=== PATIENT | female | born 1975 | race Caucasian/White ===

== ENCOUNTER 2021-12-06 17:19 | Emergency (ER) | payer BC, SELFPAY ==
[2021-12-06 17:27] VITALS: BP 156/81; PULSE 105; RESP 18; TEMP 36.8; O2SAT 100; BMI 31.7
--- NOTE | 2021-12-06 18:00 | ED_ITS ---
HPI - General Adult General Chief complaint: Headache/Migraine Stated complaint: Spinal Headache high Blood Pressure Time Seen by Provider: 12/06/21 17:40 Source: patient Mode of arrival: ambulatory Limitations: no limitations History of Present Illness HPI narrative: 46-year-old female coming in today with a headache that started yesterday. Patient had 2 epidural injections yesterday for sciatic cough she states 1 at L5 and another 1 lower. She states that she has had headache ever since. Headache is located across the forehead from zoroastrian to zoroastrian. Nothing seems to make it better or worse. When she lays down the headache remains. Sometimes it does radiate to the back of the head and down her neck as well does not radiate down her back. She denies any low back pain that is new. Again this pain is not positional. She feels nauseated. Has not vomited. Denies any fevers or chills. No confusion, blurry vision or changes in her hearing. No focal neurologic deficits. She states that she does have history of migraines, but has not had a migraine for quite some time. Related Data Home Medications Medication Instructions Recorded Confirmed dextroamphetamine-amphetamine ER PO 12/06/21 15 mg 24hr capsule,extend release estradiol 1 mg tablet mg 12/06/21 gabapentin 600 mg tablet mg 12/06/21 montelukast 10 mg tablet mg 12/06/21 Allergies Allergy/AdvReac Type Severity Reaction Status Date / Time No Known Drug Allergies Allergy Verified 12/06/21 17:35 Review of Systems Status of ROS: Reports: 10 or more systems reviewed and unremarkable except as noted in History and below Exam Narrative: Exam Narrative: Well-nourished well-developed patient in no acute distress. Alert and oriented. Answers questions appropriately. Mood and affect are appropriate. Thoughts are goal oriented and rational. No tangential or magical thinking noted. Patient speaks in full sentences without needing to catch their breath. HEENT: Normocephalic atraumatic. Pupils are equally round reactive to light. Extraocular muscles are intact. Conjunctivae are moist without any icterus noted. Moist mucous membranes. Posterior pharynx is normal. Neck is soft without any lymphadenopathy or thyromegaly. No masses are appreciated. She has no tenderness to palpation at the neck. She has full range of motion with flexion, extension, side bending or rotation of the cervical spine. He Skin: Well perfused without any obvious rashes. Back: Appears normal. Strength is 5/5 of the upper and lower extremities. Reflexes are 2+ and symmetric at the knees. Cranial nerves 3-12 are normal. There is no nystagmus either horizontally or vertically. Gait is normal. Const: Vital Signs, click to edit/add: Vital Signs - 24 hr 12/06/21 17:27 Temperature 98.2 F Pulse Rate [Right Pulse Oximeter] 105 H Respiratory Rate 18 Blood Pressure [Ri ght Upper Arm] 156/81 H Pulse Oximetry 100 Course Course Hospital Course: IV was placed patient received normal saline, IV Zofran, Toradol, Benadryl and dexamethasone. She did not feel much relief although she stated that it did take the edge off. At this time we discussed an epidural blood patch. Patient states that at this point she would like to go home and try to get some rest tonight and if things are not improving she will return. Again at this time she did not wish to have any further procedures done. Vital Signs Vital signs: Initial Vital Signs Temperature 98.2 F 12/06/21 17:27 Temperature Source Temporal Artery Scan 12/06/21 17:27 Pulse Rate 105 H 12/06/21 17:27 Respiratory Rate 18 12/06/21 17:27 Blood Pressure 156/81 H 12/06/21 17:27 Blood Pressure Mean 106 12/06/21 17:27 Blood Pressure Position Sitting 12/06/21 17:27 Pulse Oximetry 100 12/06/21 17:27 Oxygen Delivery Method 12/06/21 17:27 Vital Signs Temperature 98.2 F 12/06/21 17:27 Pulse Rate 105 H 12/06/21 17:27 Respiratory Rate 18 12/06/21 17:27 Blood Pressure 156/81 H 12/06/21 17:27 Pulse Oximetry 100 12/06/21 17:27 Temperature 98.2 F 12/06/21 17:27 Pulse Rate 105 H 12/06/21 17:27 Respiratory Rate 18 12/06/21 17:27 Blood Pressure 156/81 H 12/06/21 17:27 Pulse Oximetry 100 12/06/21 17:27 Medical Decision Making MDM Narrative Medical decision making narrative: 46-year-old female with a headache status post epidural injection. Patient will be discharged home at this time see if she can rest tonight. again, we discussed an epidural blood patch which she did not wish to have done at this time. We discussed returning for any vomiting, confusion, neurologic deficits or fever. Patient and were agreeable had no other questions. Discharge Plan Discharge Clinical Impression: Post-dural puncture headache Patient Disposition: Home, Self-Care Condition: Stable Additional Instructions: Increase the amount of fluid that you normally take. Also increase the amount of caffeine. Get as much rest as you can. Return if things are not improving. Prescriptions: No Action gabapentin 600 mg tablet 0RF Label Comments: TAKE 1/2 TO 1 TABLET BY MOUTH EVERY NIGHT AT BEDTIME NEEDED FOR BACK AND LEG PAIN estradiol 1 mg tablet 0RF Label Comments: TAKE 1 TABLET BY MOUTH TWICE DAILY montelukast 10 mg tablet 0RF dextroamphetamine-amphetamine 15 mg capsule,extended release 24hr PO 0RF Follow Up/Referrals: Jose France MD [Staff Physician] - Stand Alone Forms: [facility] Info Instructions
[2021-12-06] MEDS: 0.9 % SODIUM CHLORIDE 1000 ml 1,000 ML IV (18:10)
[2021-12-06] MEDS: ONDANSETRON 2 MG/ML inj 4 MG IVP (18:23)
[2021-12-06] MEDS: KETOROLAC 30 MG/ML inj IVP (18:25)
[2021-12-06] MEDS: dexAMETHasone 4 MG/ML VIAL IV (18:27)
[2021-12-06] MEDS: diphenhydrAMINE 50 MG/ML inj 25 MG IVP (18:36)
== END 2021-12-06 19:45 | disposition home or self-care (01) ==
PROVIDERS: Emergency Provider Family Medicine
DX: R51.9 Headache, unspecified (principal); Y84.8 Other medical procedures as the cause of abnormal reaction of the patient, or of later complication, without mention of misadventure at the time of the procedure
CPT/HCPCS: 96374; 96375; 99284; J1100; J1200; J1885; J2405; J7030

== ENCOUNTER 2023-03-21 11:00 | Outpatient (RCR) | payer BC, SELFPAY | END 2023-07-19 23:59 | disposition home or self-care (01) | PROVIDERS: Visit Provider Physician Assistant Medical | DX: N39.41 Urge incontinence (principal); R35.0 Frequency of micturition; R39.16 Straining to void; Z51.89 Encounter for other specified aftercare | CPT/HCPCS: 97110; 97140; 97163; 97535 ==

== ENCOUNTER 2023-04-13 07:21 | Emergency (ER) | payer BC, SELFPAY ==
[2023-04-13 07:39] VITALS: BP 129/100; PULSE 95; RESP 16; TEMP 36.1; O2SAT 98; BMI 25.7
--- NOTE | 2023-04-13 08:02 | ED.GENADULT ---
HPI - General Adult General Date Seen: 04/13/23 Chief complaint: Ear/Nose/Throat Problem Stated complaint: ear infection / congestion Time Seen by Provider: 04/13/23 07:46 Source: patient Mode of arrival: ambulatory Limitations: no limitations History of Present Illness HPI narrative: Patient is a 48-year-old woman who presents for evaluation of ear pain and upper respiratory symptoms which started yesterday. She had an ear infection at the beginning of March, took a 10 day course of Augmentin which she finished on about the . Says the ear pain improved but she still had fullness and difficulty hearing out of that ear and then yesterday it started to hurt again. She has had associated congestion, sore throat, headache, cough. No fevers. She has to get on a plane tomorrow morning and is worried about how the ear will do. Related Data Home Medications Medication Instructions Recorded Confirmed dextroamphetamine-amphetamine ER PO 12/06/21 15 mg 24hr capsule,extend release estradiol 1 mg tablet mg 12/06/21 gabapentin 600 mg tablet mg 12/06/21 montelukast 10 mg tablet mg 12/06/21 Previous Rx's Medication Instructions Recorded cefdinir 300 mg capsule 300 mg PO BID #20 caps 04/13/23 prednisone 20 mg tablet 20 mg PO BID #10 tabs 04/13/23 Allergies Allergy/AdvReac Type Severity Reaction Status Date / Time No Known Drug Allergies Allergy Verified 12/06/21 17:35 Exam Narrative: Exam Narrative: Vital signs reviewed In general, alert, nontoxic Head: Normocephalic, atraumatic. Eyes: Sclera clear. Pupils equal and reactive. ENT: Mucous membranes moist. Throat is normal. Left TM is normal. On the right, the eardrum appears somewhat sclerotic and there is erythema noted on the periphery and the upper ear drum. Landmarks are not seen. Neck: Supple without adenopathy. Heart: Regular rate and rhythm without murmur. Lungs: Clear. No increased work of breathing, crackles or wheezes. Neurologic: Alert, conversant. Speech fluent, face symmetric. Moves all extremities equally. Skin: Warm, dry well perfused. Affect: Normal. Const: Vital Signs, click to edit/add: Vital Signs - 24 hr 04/13/23 07:39 Temperature 96.9 F L Pulse Rate [Left P ulse Oximeter] 95 Respiratory Rate 16 Blood Pressure [Le ft Upper Arm] 129/100 H Pulse Oximetry 98 Oxygen Delivery Me thod Room Air Documenting provider has reviewed patient's vital signs: yes Course Course ED Course: Difficult to tell on exam whether this is an ear that is recovering from recent infection or whether she might be redeveloping infection. Discussed the natural history of ear infections, that most are viral, and that regardless of what we do I do not know how the ear will perform on a plane tomorrow. I will go ahead and prescribe Omnicef for her as well as prednisone and I recommended that she use some Afrin as well as ibuprofen before her flight. Will also do a COVID influenza and flu swab as she is supposed to be with family later today who are medically fragile. Vital Signs Vital signs: Initial Vital Signs Temperature 96.9 F L 04/13/23 07:39 Temperature Source Temporal Artery Scan 04/13/23 07:39 Pulse Rate 95 04/13/23 07:39 Pulse Rhythm Regular 04/13/23 07:39 Pulse Strength 3+ Normal 04/13/23 07:39 Respiratory Rate 16 04/13/23 07:39 Blood Pressure 129/100 H 04/13/23 07:39 Blood Pressure Mean 109 H 04/13/23 07:39 Blood Pressure Position Sitting 04/13/23 07:39 Pulse Oximetry 98 04/13/23 07:39 Oxygen Delivery Method Room Air 04/13/23 07:39 Vital Signs Temperature 96.9 F L 04/13/23 07:39 Pulse Rate 95 04/13/23 07:39 Respiratory Rate 16 04/13/23 07:39 Blood Pressure 129/100 H 04/13/23 07:39 Pulse Oximetry 98 04/13/23 07:39 Oxygen Delivery Method Room Air 04/13/23 07:39 Temperature 96.9 F L 04/13/23 07:39 Pulse Rate 95 04/13/23 07:39 Respiratory Rate 16 04/13/23 07:39 Blood Pressure 129/100 H 04/13/23 07:39 Pulse Oximetry 98 04/13/23 07:39 Oxygen Delivery Method Room Air 04/13/23 07:39 Discharge Plan Discharge Clinical Impression: Upper respiratory infection, Otitis media Patient Disposition: Home, Self-Care Condition: Stable Instructions: Ear Infection (ED), Upper Respiratory Infection (DC) Additional Instructions: Antibiotic and steroid as prescribed, we did not have the correct antibiotic in [facility] so I sent this to your pharmacy. I would recommend use of Afrin nasal spray and ibuprofen before your flight. If your ear does not improve after this course of medications, would recommend follow-up with ENT for recheck. Prescriptions: New cefdinir 300 mg capsule 300 mg PO BID Qty: 20 0RF prednisone 20 mg tablet 20 mg PO BID Qty: 10 0RF No Action gabapentin 600 mg tablet Patient Comments: TAKE 1/2 TO 1 TABLET BY MOUTH EVERY NIGHT AT BEDTIME NEEDED FOR BACK AND LEG PAIN estradiol 1 mg tablet Patient Comments: TAKE 1 TABLET BY MOUTH TWICE DAILY montelukast 10 mg tablet dextroamphetamine-amphetamine 15 mg capsule,extended release 24hr PO Follow Up/Referrals: Provider,Not a Local [Primary Care Provider] - Stand Alone Forms: [employer] Info Instructions
[2023-04-13 08:52] LABS: PCR FLU A Negative PCR FLU A (Negative); PCR FLU B Negative PCR FLU B (Negative); PCR RSV Negative PCR RSV (Negative)
[2023-04-13 08:58] LABS: SARS PCR* Negative SARS-CoV-2 (Negative)
== END 2023-04-13 08:15 | disposition home or self-care (01) ==
LOC: ED 08:10
PROVIDERS: Emergency Provider Emergency Medicine; PCP Physician Assistant Medical
DX: H66.91 Otitis media, unspecified, right ear (principal)
CPT/HCPCS: 87631; 99283

== ENCOUNTER 2024-03-19 14:15 | Outpatient (RCR) | payer BC, SELFPAY | END 2024-07-17 23:59 | disposition home or self-care (01) | PROVIDERS: PCP Physician Assistant Medical; Visit Provider Physician Assistant | DX: Z98.1 Arthrodesis status (principal); M54.50 Low back pain, unspecified; R53.1 Weakness; Z51.89 Encounter for other specified aftercare | CPT/HCPCS: 97110; 97140; 97161 ==